=== PATIENT | female | born 1985 | race Caucasian/White ===

== ENCOUNTER 2019-10-15 08:45 | Emergency (ER) | payer SELFPAY ==
[~2019-10-15] VITALS: Ht 154.9 cm; Wt 120.0 kg
[2019-10-15 08:58] VITALS: Ht 154.9 cm; Wt 120.0 kg
[2019-10-15] MEDS ORDERED: XANAX0.5 MG PO (09:00)
[2019-10-15 09:24] LABS: HEMATOCRIT 42.3 % (36.0-48.0); HEMOGLOBIN 14.1 g/dL (12-16); LYMPHOCYTES 27.7 % (15-50); MCH 29.7 pg (26.0-34.0); MCHC 33.3 g/dL (31.0-37.0); MCV 89.2 fL (80.0-100.0); NEUTROPHILS 63.5 % (40-80); PLATELET COUNT 306 10x3/uL (130-400); RBC 4.74 10x6/uL (4.00-5.40); RDW 13.1 % (11.5-14.5); WBC 7.1 10x3/uL (4.8-10.8)
[2019-10-15 09:32] LABS: HCG SERUM POSITIVE (NEGATIVE)
[2019-10-15 09:35] LABS: CALC OSMOLALITY 268 mosm/kg (275-300); CALCIUM 8.3 mg/dL (8.5-10.1); CARBON DIOXIDE 23.4 mmol/L (21.0-32.0); CHLORIDE - SERUM 102 mmol/L (98-107); CREATININE - SERUM 0.9 mg/dL (0.6-1.3); GLUCOSE 99 mg/dL (74-106); POTASSIUM - SERUM 3.6 mmol/L (3.5-5.1); SODIUM 134 mmol/L (136-145); UREA NITROGEN 15 mg/dL (7-18); eGFR NON AFRICAN AMERICAN 77 mL/min (90-120)
[2019-10-15 09:51] LABS: BILIRUBIN NEGATIVE (NEGATIVE); GLUCOSE NEGATIVE (NEGATIVE); KETONE MODERATE mg/dL (NEGATIVE); NITRITE NEGATIVE (NEGATIVE); UROBILINOGEN NORMAL (NORMAL)
[2019-10-15 10:04] LABS: ALBUMIN 3.7 g/dL (3.4-5.0); ALKALINE PHOSPHATASE 78 U/L (30-120); ALT (SGPT) 56 U/L (10-68); BILIRUBIN - TOTAL 0.39 mg/dL (0.2-1.3); HCG - QUANTITATIVE (MATERNAL) 1410 mIU/mL; PROTEIN - SERUM 7.6 g/dL (6.4-8.2)
[2019-10-15 12:22] VITALS: BP 144/87
== END 2019-10-15 12:23 | disposition home or self-care (01) ==
LOC: D.ER 08:45
PROVIDERS: Emergency Medicine
DX: O02.81 Inappropriate change in quantitative human chorionic gonadotropin (hCG) in early pregnancy (principal); Z3A.01 Less than 8 weeks gestation of pregnancy; N93.9 Abnormal uterine and vaginal bleeding, unspecified